=== PATIENT | male | born 1950 | race Hispanic/Latino ===

== ENCOUNTER 2017-04-13 11:49 | Emergency (ER) | payer MEDICARE, BC ==
[2017-04-13 12:04] VITALS: BMI 29.2
[2017-04-13 12:05] VITALS: RESP 16; TEMP 98
--- NOTE | 2017-04-13 12:32 | ED PDOC ---
Arrival/HPI <Rustam Boyd - Last Filed: 04/13/17 13:24> - General Historian: Patient - History of Present Illness Time/Duration: Prior to Arrival Symptom Onset: Sudden Symptom Course: Resolved Activities at Onset: Other Context: Standing <Ulises Zarate - Last Filed: 04/13/17 14:15> - General Chief Complaint: Dizziness/Lightheaded Time Seen by Provider: 04/13/17 11:51 - History of Present Illness Narrative History of Present Illness (Text): 04/13/17 12:28 This is a 66 yo male with past medical hx of DVT presenting with chief complaint of "dizziness." Pt says he was walking outside in the cold yesterday around 12:30 PM. He stepped into a warm building and was waiting for the elevator. While standing up waiting for the elevator, he reports feeling lightheaded and that he was about to faint. He also reports an associated dull headache leading up to this feeling. He sat down and after 2 minutes the feeling passed. He denies LOC. This has never happened to him before. He went home and felt fine the rest of the day. His said he should get it checked out so he came in today. Denies current feelings of dizziness or lightheadedness. Only sees a doctor once a year for an annual physical. Denies fevers, chills, chest pain, palpitations, shortness of breath, bloody stools. ABCD2 score = 2. PMH: DVT PSH: ACL repair, other knee sx, appendectomy Allergies: NKDA Home meds : none FH: Stroke in family Social hx: denies smoking, drinking, drug use. Lives at home with . 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 Born in [place], but [place] citizen. 04/13/17 12:42 04/13/17 14:14 04/13/17 14:14 (Ulises Zarate) Past Medical History - Provider Review Nursing Documentation Reviewed: Yes - Travel History Have you recently traveled outside [place] w/in the past 3 mons?: No - Infectious Disease Hx of Infectious Diseases: None - Tetanus Immunization Tetanus Immunization: Unknown - Psychiatric Hx Substance Use: No - Surgical History Hx Appendectomy: Yes Other/Comment: ACL left knee, bilateral knee surgery - Anesthesia Hx Anesthesia: Yes Hx Anesthesia Reactions: No Hx Malignant Hyperthermia: No <Ulises Zarate - Last Filed: 04/13/17 14:15> Family/Social History - Physician Review Nursing Documentation Reviewed: Yes Family/Social History: CVA/TIA Smoking Status: Never Smoked Hx Alcohol Use: No Hx Substance Use: No Hx Substance Use Treatment: No <Ulises Zarate - Last Filed: 04/13/17 14:15> Allergies/Home Meds <Rustam Boyd - Last Filed: 04/13/17 13:24> <Ulises Zarate - Last Filed: 04/13/17 14:15> Allergies/Adverse Reactions: Allergies No Known Allergies Allergy (Verified 04/13/17 12:25) Home Medications: Home Meds Medication Instructions Recorded Confirmed No Known Home Med 04/13/17 04/13/17 Review of Systems - Review of Systems Constitutional: absent: Weight Change, Fevers Eyes: absent: Vision Changes, Photophobia ENT: absent: Hearing Changes, Tinnitus Respiratory: absent: SOB, Cough Cardiovascular: absent: Chest Pain, Palpitations Gastrointestinal: absent: Abdominal Pain, Stool Changes Genitourinary Male: absent: Dysuria, Frequency Musculoskeletal: absent: Arthralgias, Back Pain Skin: absent: Rash, Pruritis Neurological: Dizziness. absent: Headache, Focal Weakness Endocrine: absent: Diaphoresis, Polyuria Hemo/Lymphatic: absent: Adenopathy, Easy Bleeding Psychiatric: absent: Anxiety, Depression <Ulises Zarate - Last Filed: 04/13/17 14:15> Physical Exam Vital Signs Reviewed: Yes Temperature: Afebrile Blood Pressure: Normal Pulse: Bradycardic Respiratory Rate: Normal <Rustam Boyd - Last Filed: 04/13/17 13:24> Appearance: Positive for: Well-Appearing Mental Status: Positive for: Alert and Oriented X 3 - Systems Exam Head: Present: Atraumatic, Normocephalic Pupils: Present: PERRL Extroacular Muscles: Present: EOMI Mouth: Present: Moist Mucous Membranes Neck: Present: Normal Range of Motion Respiratory/Chest: Present: Clear to Auscultation. No: Respiratory Distress Cardiovascular: Present: Normal S1, S2, Bradycardic Abdomen: No: Tenderness, Distention, Peritoneal Signs Back: Present: Normal Inspection Upper Extremity: Present: Normal Inspection. No: Cyanosis, Edema Lower Extremity: Present: Normal Inspection. No: Edema Neurological: Present: CN II-XII Intact, Speech Normal, Motor Func Grossly Intact, Normal Sensory Function Skin: Present: Warm, Dry Psychiatric: Present: Alert, Oriented x 3, Normal Insight, Normal Concentration <Ulises Zarate - Last Filed: 04/13/17 14:15> Vital Signs Temp Pulse Resp BP Pulse Ox 04/13/17 14:12 60 16 147/87 100 04/13/17 12:05 98 F 57 L 16 143/82 98 Medical Decision Making <Rustam Boyd - Last Filed: 04/13/17 13:24> <Ulises Zarate - Last Filed: 04/13/17 14:15> ED Course and Treatment: A 66 year old male with dizziness. In agreement with resident note, which includes further HPI details. Patient was seen and evaluated with resident, came up with plan and treatment together. (Rustam Boyd) - Lab Interpretations Lab Results: 04/13/17 12:40 04/13/17 12:40 Lab Results 04/13/17 12:40: Sodium 142, Potassium 4.7, Chloride 104, Carbon Dioxide 26, Anion Gap 16, BUN 22 H, Creatinine 1.1, Est GFR ( Amer) > 60, Est GFR ( Non-Af Amer) > 60, Random Glucose 96, Calcium 9.6, Total Bilirubin 0.5, AST 29, ALT 27, Alkaline Phosphatase 66, Troponin I < 0.01, Total Protein 7.4, Albumin 4.3, Globulin 3.1, Albumin/Globulin Ratio 1.4 04/13/17 12:40: WBC 5.6, RBC 5.04, Hgb 15.8, Hct 45.8, MCV 90.9, MCH 31.3, MCHC 34.5, RDW 13.1, Plt Count 152, MPV 9.9, Gran % 56.5, Lymph % (Auto) 30.1, Bucks % (Auto) 8.8 H, Eos % (Auto) 4.1, Baso % (Auto) 0.5, Gran # 3.16, Lymph # 1.7, Bucks # 0.5, Eos # 0.2, Baso # 0.03 04/13/17 12:40: D-Dimer, Quantitative < 200 - RAD Interpretation Radiology Orders: 04/13/17 12:26 HEAD W/O CONTRAST [CT] Stat - PA / [employer] / Resident Statement / has reviewed & agrees with the documentation as recorded. / has examined the patient and agrees with the treatment plan. <Rustam Boyd - Last Filed: 04/13/17 13:24> Disposition/Present on Arrival <Rustam Boyd - Last Filed: 04/13/17 13:24> - Present on Arrival History of DVT/PE: Yes History of Uncontrolled Diabetes: No Urinary Catheter: No History of Decub. Ulcer: No History Surgical Site Infection Following: None <Ulises Zarate - Last Filed: 04/13/17 14:15> - Disposition Diagnosis: Near syncope Disposition: HOME/ ROUTINE Patient Problems: Current Active Problems Problem Status Onset Near syncope Acute Condition: STABLE Discharge Instructions (ExitCare): Near Syncope (ED) [facility] - Follow up with primary Forms: [employer] (Wallisian)
[2017-04-13 12:57] LABS: BASO # 0.03 K/mm3 (0.0-2.0); BASO % 0.5 % (0.0-3.0); EOS # 0.2 (0.0-0.7); EOS % 4.1 % (1.5-5.0); GRAN # 3.16 (1.4-6.5); GRAN % 56.5 % (50.0-68.0); HEMATOCRIT 45.8 % (42.0-52.0); LYMPH # 1.7 (1.2-3.4); LYMPH % 30.1 % (22.0-35.0); MEAN CELL VOLUME 90.9 fl (80.0-105.0); MEAN CORPUSCULAR HEMOGLOBIN 31.3 pg (25.0-35.0); MEAN CORPUSCULAR HGB CONC 34.5 g/dl (31.0-37.0); MEAN PLATELET VOLUME 9.9 fl (7.0-11.0); MONO # 0.5 (0.1-0.6); MONO % 8.8 % (1.0-6.0); RED CELL DISTRIBUTION WIDTH 13.1 % (11.5-14.5); WHITE BLOOD COUNT 5.6 10^3/ul (4.5-11.0)
[2017-04-13 13:07] LABS: ALB/GLOB RATIO 1.4 (1.1-1.8); ALKALINE PHOSPHATASE 66 U/L (38-126); ALT/SGPT 27 U/L (7-56); AST/SGOT 29 U/L (17-59); BILIRUBIN,TOTAL 0.5 mg/dL (0.2-1.3); BLOOD UREA NITROGEN 22 mg/dL (7-21); CALCIUM 9.6 mg/dL (8.4-10.5); CARBON DIOXIDE 26 mmol/L (21-33); CHLORIDE 104 mmol/L (98-107); GFR AFRICAN-AMERICAN > 60; GLUCOSE,RANDOM 96 mg/dL (70-110); POTASSIUM 4.7 mmol/L (3.6-5.0); SODIUM 142 mmol/L (132-148); TOTAL PROTEIN 7.4 g/dL (5.8-8.3)
[2017-04-13 13:18] LABS: TROPONIN I < 0.01 ng/mL
--- NOTE | 2017-04-13 13:42 | CT ---
PROCEDURE: CT HEAD WITHOUT CONTRAST. HISTORY: near syncope COMPARISON: None available. TECHNIQUE: Axial computed tomography images were obtained through the head/brain without intravenous contrast. Radiation dose: Total exam DLP = 775.01 mGy-cm. This CT exam was performed using one or more of the following dose reduction techniques: Automated exposure control, adjustment of the mA and/or kV according to patient size, and/or use of iterative reconstruction technique. FINDINGS: HEMORRHAGE: No acute parenchymal, subarachnoid or extra-axial hemorrhage. BRAIN: No mass effect or edema. No atrophy or chronic microvascular ischemic changes. Mild generalized volume loss. . There is a prominent on left-sided transverse fissure. VENTRICLES: No obstructive hydrocephalus. CALVARIUM: Unremarkable. PARANASAL SINUSES: Unremarkable as visualized. No significant inflammatory changes. MASTOID AIR CELLS: Unremarkable as visualized. No inflammatory changes. OTHER FINDINGS: None. IMPRESSION: No acute intracranial hemorrhage.
[2017-04-13 14:13] VITALS: BP 147/87; PULSE 60; O2SAT 100
--- NOTE | 2017-04-14 14:05 | CARD ---
APPROVED REPORT EKG Measurement Heart [id number] DC [id number] <Conclusion> Sinus bradycardia Otherwise normal ECG
== END 2017-04-13 14:13 | disposition home or self-care (01) ==
LOC: ED 11:49
DX: R55 Syncope and collapse (principal)